=== PATIENT | female | born 1970 | race Caucasian/White ===

== ENCOUNTER 2021-06-18 10:13 | Inpatient (IN) | payer OTHER ==
[~2021-06-18] VITALS: Ht 172.7 cm; Wt 52.8 kg
[2021-06-18] VITALS (11 sets, daily range): BP systolic 118–158; BP diastolic 70–87
--- NOTE | ~2021-06-18 | CON ---
[address] [address] CONSULTATION Name: GHULAM BENAVIDEZ Room: [address] IN M.R.#: [id number] Admission: 06/18/21 Attend Phys: Dimas Dawson MD Discharge: Date of : 66 Report #: [id number] THIS REPORT FOR: cc: Shari Murry Ahmad W. DO Arakelov, Alexandr V. MD ~ DATE OF CONSULTATION: 06/19/2021 REQUESTING PHYSICIAN: Dimas Dawson MD REASON FOR CONSULTATION: Hyponatremia. Consultation is done by me on 06/19/2021. HISTORY OF PRESENT ILLNESS: The patient is a 51-year-old female with medical history significant for alcoholism. She states that she has been drinking 12 beers a day for many years. She presents with complaints of weakness, nausea, vomiting, and diarrhea. She was found to have a very high alcohol level of 36. Her serum sodium was 119. She was admitted to the hospital. PAST MEDICAL HISTORY: Medical history is significant for alcoholism. Likely, she has liver cirrhosis. SOCIAL HISTORY: Alcoholism. FAMILY HISTORY: No history of hyponatremia. REVIEW OF SYSTEMS: Positive for weakness, nausea and vomiting. PHYSICAL EXAMINATION: GENERAL: Awake, alert. VITAL SIGNS: Blood pressure is 108/72, heart rate 89, afebrile. HEENT: Pupils round. NECK: Supple. LUNGS: Clear. CARDIOVASCULAR: Regular rate. ABDOMEN: Soft. EXTREMITIES: Lower extremities, no edema. She has significant muscle wasting. She is very malnourished. ASSESSMENT: Hyponatremia due to beer potomania. The patient is malnourished. PLAN: 1. To [place] [address] CONSULTATION Name: GHULAM BENAVIDEZ Room: [address] IN [facility].#: [id number] Admission: 06/18/21 Attend Phys: Dimas Dawson MD Discharge: Date of : 66 Report #: [id number] 2. Improve nutrition. 3. She has to stop drinking. Her serum sodium does not need to be corrected to a normal level. Level around 125, 124 is acceptable and anything over that will be artificial correction of the sodium. Again, her sodium will slowly improve over time if she stops drinking and if she improves her nutrition. By: [id number] Francisca Zavala MD /nt
[~2021-06-18 10:13] MED LIST: NORCO 5-325 TA1 EACH PO
[2021-06-18 10:45] LABS: HEMATOCRIT 29.2 % (37.0-47.0); HEMOGLOBIN 10.3 gm/dL (12.0-15.0); MCH 33.1 pg (26.0-34.0); MCHC 35.2 g/dL (28.0-37.0); MCV 94.2 fL (80.0-100.0); MPV 8.6 fl. (7.2-11.1); NUCLEATED RBCS 0 /100WBC; RDW-CV 13.2 % (10.5-14.5); WBC 3.5 thou/uL (4.0-11.0)
[2021-06-18 10:53] LABS: CALCIUM 7.7 mg/dL (8.5-10.1); CREATININE 0.4 mg/dL (0.6-1.3)
[2021-06-18 10:57] LABS: ALBUMIN 3.2 g/dL (3.4-5.0); POTASSIUM 2.5 mmol/L (3.5-5.1); TOTAL BILIRUBIN 0.9 mg/dL (<0.1-1.0); TOTAL PROTEIN 6.3 g/dL (6.4-8.2)
[2021-06-18 11:02] LABS: URINE BILIRUBIN NEGATIVE (Negative); URINE BLOOD TRACE (Negative); URINE CLARITY CLEAR; URINE COLOR YELLOW; URINE GLUCOSE-RANDOM NEGATIVE (Negative); URINE KETONES 2+ (Negative); URINE LEUKOCYTES-REFLEX NEGATIVE (Negative); URINE NITRITE-REFLEX NEGATIVE (Negative); URINE PROTEIN NEGATIVE (Negative); URINE UROBILINOGEN 0.2 E.U./dl (0.2-1.0)
[2021-06-18 11:35] LABS: PLATELET ESTIMATE DECREASED
[2021-06-18 11:36] LABS: ABSOLUTE LYMPHOCYTES 0.2 thou/uL (0.8-5.3); ABSOLUTE MONOCYTES 0.3 thou/uL (0.0-1.2); PLATELET COUNT* 50 thou/uL (150-400)
[2021-06-18 13:16] LABS: AMP/METHAMP Negative (Negative); BARBITURATES Negative (Negative); BENZODIAZEPINES Negative (Negative); COCAINE Negative (Negative); METHADONE Negative (Negative); OPIATES POSITIVE (Negative); PCP Negative (Negative); THC Negative (Negative)
[2021-06-18 13:38] LABS: CALCIUM 7.3 mg/dL (8.5-10.1); CREATININE 0.4 mg/dL (0.6-1.3)
[2021-06-18 13:40] LABS: POTASSIUM 2.5 mmol/L (3.5-5.1)
[2021-06-18 17:16] LABS: CALCIUM 7.2 mg/dL (8.5-10.1); CREATININE 0.4 mg/dL (0.6-1.3)
[2021-06-18 17:18] LABS: POTASSIUM 2.7 mmol/L (3.5-5.1)
[2021-06-18 23:35] LABS: CALCIUM 7.3 mg/dL (8.5-10.1); CREATININE 0.4 mg/dL (0.6-1.3); MAGNESIUM 2.4 mg/dL (1.8-2.4); PHOSPHORUS* 2.1 mg/dL (2.5-4.9)
[2021-06-18 23:36] LABS: POTASSIUM 4.2 mmol/L (3.5-5.1)
[2021-06-19] VITALS (32 sets, daily range): BP systolic 96–178; BP diastolic 63–133
[2021-06-19 03:17] LABS: ABSOLUTE LYMPHOCYTES 0.3 thou/uL (0.8-5.3); ABSOLUTE MONOCYTES 0.2 thou/uL (0.0-1.2); ABSOLUTE NEUTROPHILS 2.1 thou/uL (1.6-8.1); BASOPHILS 0.6 %; HEMATOCRIT 28.4 % (37.0-47.0); HEMOGLOBIN 9.7 gm/dL (12.0-15.0); LYMPHOCYTES 12.4 %; MCH 33.3 pg (26.0-34.0); MCHC 34.2 g/dL (28.0-37.0); MCV 97.4 fL (80.0-100.0); MONOCYTES 9.4 %; MPV 9.3 fl. (7.2-11.1); NUCLEATED RBCS 0 /100WBC; POLYS 77.6 %; RBC 2.91 mil/uL (4.20-5.00); RDW-CV 13.7 % (10.5-14.5); WBC 2.6 thou/uL (4.0-11.0)
[2021-06-19 03:25] LABS: CALCIUM 7.3 mg/dL (8.5-10.1); CREATININE 0.4 mg/dL (0.6-1.3); POTASSIUM 3.4 mmol/L (3.5-5.1)
[2021-06-19 03:27] LABS: PLATELET COUNT* 24 thou/uL (150-400)
[2021-06-19 09:39] LABS: DIRECT BILIRUBIN 0.4 mg/dL (<0.1-0.3); TOTAL BILIRUBIN 1.3 mg/dL (<0.1-1.0); TOTAL PROTEIN 6.1 g/dL (6.4-8.2)
--- NOTE | 2021-06-19 11:19 | EKG ---
[place] [address] ELECTROCARDIOGRAM REPORT Name: GHULAM BENAVIDEZ Room: [address] ADM IN M.R.#: [id number] Admission: 06/18/21 Attend Phys: Dimas Dawson, Discharge: Date of : 66 Date of Service: 06/18/21 1036 Report #: [id number] THIS REPORT FOR: //name// [facility] ED Test Date: 2021-06-18 Test Time: 10:36:57 Pat Name: GHULAM BENAVIDEZ Department: Room: [facility] Gender: F [employer] Puller: CARYN : [id number] Requested By: Barrett Engle Order Number: [id number] MD: Sam Gill Measurements Intervals [place] Rate: 97 P: 83 CA: 190 QRS: 70 QRSD: 89 T: -74 QT: 407 QTc: 517 Interpretive Statements Sinus rhythm Probable left atrial enlargement RSR' in V1 or V2, probably normal variant LVH with secondary repolarization abnormality Prolonged QT interval No previous ECG available for comparison Electronically Signed On 06-19-2021 11:19:35 [employer] by Sam Gill [email or web address] <ELECTRONICALLY SIGNED> By: Sam Gill MD, [facility] 06/19/21 1119 1036 1036 Sam Gill MD, [facility] /EPI
[2021-06-20] VITALS (25 sets, daily range): BP systolic 72–128; BP diastolic 49–85
[2021-06-20 04:24] LABS: BASOPHILS 1.8 %; HEMATOCRIT 27.9 % (37.0-47.0); HEMOGLOBIN 9.6 gm/dL (12.0-15.0); LYMPHOCYTES 24.9 %; MCH 33.4 pg (26.0-34.0); MCHC 34.4 g/dL (28.0-37.0); MCV 97.1 fL (80.0-100.0); MPV 9.7 fl. (7.2-11.1); NUCLEATED RBCS 0 /100WBC; POLYS 62.3 %; RBC 2.88 mil/uL (4.20-5.00); RDW-CV 13.1 % (10.5-14.5)
[2021-06-20 04:29] LABS: ABSOLUTE LYMPHOCYTES 0.5 thou/uL (0.8-5.3); ABSOLUTE MONOCYTES 0.2 thou/uL (0.0-1.2); ABSOLUTE NEUTROPHILS 1.2 thou/uL (1.6-8.1)
[2021-06-20 04:30] LABS: PLATELET COUNT* 25 thou/uL (150-400); WBC 1.9 thou/uL (4.0-11.0)
[2021-06-20 04:35] LABS: ALBUMIN 2.8 g/dL (3.4-5.0); CALCIUM 8.1 mg/dL (8.5-10.1); CREATININE 0.4 mg/dL (0.6-1.3); POTASSIUM 3.4 mmol/L (3.5-5.1); TOTAL PROTEIN 5.9 g/dL (6.4-8.2)
== END 2021-06-21 | disposition home or self-care (01) | DRG 641 ==
LOC: M.ERS 10:13 → M.TBA-ER 12:29 → M.ICU 17:23
PROVIDERS: Internal Medicine Hematology & Oncology; Internal Medicine Nephrology; Physician Assistant; ADMIT Internal Medicine; ATTEND Internal Medicine
DX: E87.1 Hypo-osmolality and hyponatremia (principal); F10.221 Alcohol dependence with intoxication delirium; K52.9 Noninfective gastroenteritis and colitis, unspecified; K31.89 Other diseases of stomach and duodenum; Z20.822 Contact with and (suspected) exposure to COVID-19; E87.6 Hypokalemia; E83.42 Hypomagnesemia; Y90.0 Blood alcohol level of less than 20 mg/100 ml